=== PATIENT | female | born 1995 | race African-American/Black ===

== ENCOUNTER 2024-02-09 21:34 | Emergency (ER) | payer OTHER ==
[~2024-02-09] VITALS: Ht 167.6 cm; Wt 72.6 kg
[2024-02-09 21:58] LABS: EOSINOPHILS # (AUTO) 0.1 K/uL (0.0-0.7); EOSINOPHILS % (AUTO) 1.5 % (0.0-6.0); HEMATOCRIT 37 % (33-45); LYMPHOCYTES # (AUTO) 2.6 K/uL (0.8-4.8); LYMPHOCYTES % (AUTO) 52.2 % (20.0-44.0); MEAN CORPUSCULAR HEMOGLOBIN 27 PG (26.0-33.0); MEAN CORPUSCULAR HGB CONC 32 g/dl (31.0-36.0); MEAN CORPUSCULAR VOLUME 85 fL (82-100); MONOCYTES # (AUTO) 0.4 K/uL (0.1-1.30); MONOCYTES % (AUTO) 8.1 % (2.0-12.0); NEUTROPHILS # (AUTO) 1.8 K/uL (1.8-8.9); NEUTROPHILS % (AUTO) 37.2 % (43.0-81.0); PLATELET COUNT (AUTO) 361 K/uL (150-450); RED CELL DISTRIBUTION WIDTH 15.6 % (11.5-15.0); WHITE BLOOD COUNT (AUTO) 4.9 K/uL (4.3-11.0)
[2024-02-09] MEDS: IV NS 0.9% 1,000 ML BAG IV ONE (22:00)
[2024-02-09 22:09] LABS: CALCIUM, SERUM 9.2 mg/dL (8.5-10.1); CREATININE 0.8 mg/dL (0.6-1.3); POTASSIUM 3.2 mmol/L (3.5-5.1)
[2024-02-09] MEDS ORDERED: MORPHINE SULFATE INJ 4 MG/ML DISP.SYRIN ONE (22:19)
[2024-02-09] MEDS: MORPHINE SULFATE INJ 2 MG/ML DISP.SYRIN IV ONE (22:21)
[2024-02-09] MEDS ORDERED: TDAP [DIPH/PERTUSSIS/TET] 0.5 ML VIAL IM ONE (22:27)
[2024-02-09] MEDS: TDAP [DIPH/PERTUSSIS/TET] 0.5 ML VIAL IM ONE (22:29)
[2024-02-09] MEDS ORDERED: LIDOCAINE 0.5% HCL 50 ML VIAL ONE (23:02)
[2024-02-09 23:39] LABS: AMPHETAMINE, URINE POSITIVE (NEGATIVE); BARBITURATE, URINE NEGATIVE (NEGATIVE); BENZODIAZEPINE, URINE NEGATIVE (NEGATIVE); CANNABINOID, URINE NEGATIVE (NEGATIVE); COCCAINE, URINE NEGATIVE (NEGATIVE); OPIATE, URINE NEGATIVE (NEGATIVE)
[2024-02-09 23:42] LABS: PHENCYCLIDINE SCREEN,URINE POSITIVE (NEGATIVE)
[2024-02-10] MEDS ORDERED: CLIN300C12 PO (00:54)
[2024-02-10] MEDS ORDERED: CLINDAMYCIN HCL 150 MG CAPSULE ONE (00:59)
[2024-02-10] MEDS: CLINDAMYCIN HCL 150 MG CAPSULE PO ONE (01:00)
[2024-02-10 03:52] VITALS: BP 129/83; TEMP 98; O2SAT 98
== END 2024-02-10 03:53 | disposition home or self-care (01) ==
LOC: ER 21:58 → EDBD 21:58 → ER 02-10 03:53
DX: S01.511A Laceration without foreign body of lip, initial encounter (principal); F19.10 Other psychoactive substance abuse, uncomplicated; J45.909 Unspecified asthma, uncomplicated; W19.XXXA Unspecified fall, initial encounter; Y93.89 Activity, other specified; Y92.89 Other specified places as the place of occurrence of the external cause; Y99.8 Other external cause status
CPT/HCPCS: 12013; 40650; 99291; 96374; 90471; 96361; 90715; 72125; 70450; 70486; 85025; 80048; 36415; 84702; 80320; 80307; J3490; J2270; J7030; A6403; L0172; G0480